=== PATIENT | female | born 1995 | race Two or more races ===

== ENCOUNTER 2018-04-15 09:10 | Emergency (ER) | payer SELFPAY ==
[~2018-04-15] VITALS: Ht 152.4 cm; Wt 62.0 kg
[2018-04-15 09:16] VITALS: BP 123/56; PULSE 88; RESP 16; TEMP 99.2; O2SAT 98
[2018-04-15] MEDS ORDERED: SODIUM CHLOR 0.9% 1000 ML INJ 1,000 ML IV ONE (09:35)
--- NOTE | 2018-04-15 09:43 | PD ---
HPI Chief Complaint: Abdominal Pain Time Seen by Provider: 09:33 Travel History International Travel<30 days: No Contact w/Intl Traveler<30days: No Traveled to known affect area: No History of Present Illness HPI 22-year-old female with reported 5 month , presents emergency department with lower abdominal discomfort and cramping. Patient has not had care prior to this visit. Patient is G2 para 1. She denies fever, chills, nausea, vomiting, dysuria, she denies vaginal bleeding or discharge. She denies back pain. She states lower abdominal cramping for the past 2 days. Pain is 6 out of 10. Patient has no known drug allergies. PFSH Past Medical History ?: Social History Alcohol Use: No Tobacco Use: No Substance Use: No Allergies-Medications (Allergen,Severity, Reaction): Coded Allergies: No Known Allergies (Unverified , 04/15/18) Reported Meds & Prescriptions Reported Meds & Active Scripts Active No Active Prescriptions or Reported Medications Review of Systems Except as stated in HPI: all other systems reviewed are Neg General / Constitutional: No: Fever Eyes: No: Visual changes HENT: No: Headaches Cardiovascular: No: Chest Pain or Discomfort Respiratory: No: Shortness of Breath Gastrointestinal: No: Abdominal Pain Genitourinary: Positive: Pelvic Pain, No: Urgency, Frequency, Dysuria, Flank Pain, Discharge, Vaginal Bleeding Musculoskeletal: No: Pain Skin: No Rash Neurologic: No: Weakness Psychiatric: No: Depression Endocrine: No: Polydipsia Hematologic/Lymphatic: No: Easy Bruising Physical Exam Narrative GENERAL: Patient appears in no obvious distress per SKIN: Warm and dry. Normal color. Normal turgor. HEAD: Atraumatic. Normocephalic. EYES: Pupils equal and round. No scleral icterus. No injection or drainage. ENT: No nasal bleeding or discharge. Mucous membranes pink and moist. Pharynx is clear. Airways patent. NECK: Trachea midline. Supple nontender. CARDIOVASCULAR: Regular rate and rhythm. RESPIRATORY: No accessory muscle use. Clear to auscultation. Breath sounds equal bilaterally. GASTROINTESTINAL: Abdomen soft, non-tender, gravid uterus consistent with history. Hepatic and splenic margins not palpable. No CVA tenderness. MUSCULOSKELETAL: Extremities without clubbing, cyanosis, or edema. No obvious deformities. NEUROLOGICAL: Awake and alert. No obvious cranial nerve deficits. Motor grossly within normal limits. Five out of 5 muscle strength in the arms and legs. Normal speech. PSYCHIATRIC: Appropriate mood and affect; insight and judgment normal. Data Data Last Documented VS Vital Signs Date Time Temp Pulse Resp B/P (MAP) Pulse Ox O2 Delivery O2 Flow Rate FiO2 04/15/18 09:16 99.2 88 16 123/56 (78) 98 Orders Orders Beta Hcg (Quant/Titer) (04/15/18 09:35) Complete Blood Count With Diff (04/15/18 09:35) Comprehensive Metabolic Panel (04/15/18 09:35) Urinalysis - C+S If Indicated (04/15/18 09:35) Iv Access Insert/Monitor (04/15/18 09:35) Ecg Monitoring (04/15/18 09:35) Heart Tones (04/15/18 09:35) Sodium Chloride 0.9% Flush (Ns Flush) (04/15/18 09:45) Sodium Chlor 0.9% 1000 Ml Inj (Ns 1000 M (04/15/18 09:35) Ed Poc Ultrasound (04/15/18 ) MDM Medical Decision Making Medical Screen Exam Complete: Yes Emergency Medical Condition: Yes Differential Diagnosis . Abdominal pain. Abdominal cramping. Narrative Course Patient appears medically stable at time of exam. Labs ordered including CBC, CMP, urinalysis, and beta hCG. IV access is obtained and patient is given 1000 mL's normal saline bolus. heart tones are obtained per Bedside ultrasound performed by Dr. Key. Ultrasound shows viable fetus approximately 20 weeks based on measurements. heart rate is 144. Calls placed to the funeral location manager hospitalist, who agrees the patient can be transferred to the OB floor for further evaluation. Diagnosis Primary Impression: Qualified Codes: Z3A.20 - 20 weeks gestation of Additional Impression: Abdominal pain Qualified Codes: R10.30 - Lower abdominal pain, unspecified Patient Instructions: General Instructions Scripts No Active Prescriptions or Reported Meds Disposition: 70 TRANSFER TO OTHER FACILITY Condition: Stable Chandler Mejia April 15, 2018 09:43
[2018-04-15] MEDS ORDERED: SODIUM CHLORIDE 0.9% FLUSH 10 ML FLUSH IVF PRN (09:45)
--- NOTE | 2018-04-15 10:10 | PD ---
Data Data Last Documented VS Vital Signs Date Time Temp Pulse Resp B/P (MAP) Pulse Ox O2 Delivery O2 Flow Rate FiO2 04/15/18 09:16 99.2 88 16 123/56 (78) 98 Orders Orders Beta Hcg (Quant/Titer) (04/15/18 09:35) Complete Blood Count With Diff (04/15/18 09:35) Comprehensive Metabolic Panel (04/15/18 09:35) Urinalysis - C+S If Indicated (04/15/18 09:35) Iv Access Insert/Monitor (04/15/18 09:35) Ecg Monitoring (04/15/18 09:35) Heart Tones (04/15/18 09:35) Sodium Chloride 0.9% Flush (Ns Flush) (04/15/18 09:45) Sodium Chlor 0.9% 1000 Ml Inj (Ns 1000 M (04/15/18 09:35) Ed Poc Ultrasound (04/15/18 ) MDM Supervised Visit with ARA: Yes Narrative Course The history, exam, and medical decision-making in the associated mid-level provider note were completed with my assistance. I reviewed and agree with the findings presented. I attest that I had a [id number] encounter with the patient on the same day, and personally performed and documented my assessment and findings in the medical record. *My assessment and Findings: 22-year-old woman, Nauruan-speaking, 2 para 1 here with lower abdominal cramping in the setting of . Believe she is about 5 months . No care. No previous ultrasound. No vaginal bleeding. No discharge. No other complaints. Symptoms ongoing for 2 days. Looks well on exam. Benign abdominal exam. Sfpas-ee-[id number] ultrasound shows pregnancies about 20+ weeks based on rough estimate of biparietal diameter. I spoke to the OB hospitalist. Will send labs, UA, will send L&D for evaluation given gestational age and OB related complaint. Procedures Procedure Narrative Qdqzi-eu-hius ultrasound: Focused transabdominal ultrasound performed by me at the bedside to evaluate for gestational age and well-being. Beck intrauterine is identified at about 21 weeks gestational age, heart rate in the 150s. Diagnosis Primary Impression: Qualified Codes: Z3A.20 - 20 weeks gestation of Additional Impression: Abdominal pain Qualified Codes: R10.30 - Lower abdominal pain, unspecified Patient Instructions: General Instructions Scripts No Active Prescriptions or Reported Meds Disposition: 70 TRANSFER TO OTHER FACILITY Condition: Arsenio Miller MD April 15, 2018 10:10
[2018-04-15 10:17] LABS: AUTOMATED NEUTROPHIL # 8.5 TH/MM3 (1.8-7.7); BASOPHIL # 0.1 TH/MM3 (0-0.2); BASOPHIL % 0.5 % (0.0-2.0); EOSINOPHIL # 1.6 TH/MM3 (0-0.4); EOSINOPHIL % 11.5 % (0.0-4.0); HEMATOCRIT 36.3 % (35.0-46.0); HEMOGLOBIN 11.9 GM/DL (11.6-15.3); LYMPH % 22.7 % (9.0-44.0); LYMPHOCYTE # 3.2 TH/MM3 (1.0-4.8); MEAN CELL VOLUME 84.6 FL (80.0-100.0); MEAN CORPUSCULAR HEMOGLOBIN 27.8 PG (27.0-34.0); MEAN CORPUSCULAR HGB CONC 32.8 % (32.0-36.0); MEAN PLATELET VOLUME 9.7 FL (7.0-11.0); MONO % 5.1 % (0.0-8.0); MONOCYTE # 0.7 TH/MM3 (0-0.9); NEUT % 60.2 % (16.0-70.0); PLATELET COUNT 219 TH/MM3 (150-450); RED BLOOD COUNT 4.29 MIL/MM3 (4.00-5.30); RED CELL DISTRIBUTION WIDTH 15.2 % (11.6-17.2); WHITE BLOOD COUNT 14.1 TH/MM3 (4.0-11.0)
[2018-04-15 10:23] LABS: BACTERIA, URINE OCC /hpf; BILIRUBIN, URINE NEG (NEG); BLOOD, URINE NEG (NEG); GLUCOSE,URINE NEG (NEG); KETONE, URINE NEG (NEG); MUCUS URINE FEW /lpf (OCC); NITRITE,URINE NEG (NEG); SQUAMOUS EPITHELIAL CELL URINE 7 /hpf (0-5); URINE COLOR LIGHT-YELLOW (YELLW/STRAW); URINE LEUKOCYTE ESTERASE LARGE (NEG)
[2018-04-15 10:36] LABS: ALT (GPT) 24 U/L (10-53)
[2018-04-15 10:38] LABS: AST (GOT) 16 U/L (15-37); BICARBONATE 21.6 MEQ/L (21.0-32.0); BLOOD UREA NITROGEN 5 MG/DL (7-18); CALCIUM 8.2 MG/DL (8.5-10.1); CHLORIDE 106 MEQ/L (98-107); CREATININE 0.45 MG/DL (0.50-1.00); GLOMERULAR FILTRATION RATE 176 ML/MIN (>89); GLUCOSE,RANDOM 81 MG/DL (74-106); SODIUM (NA) 139 MEQ/L (136-145)
[2018-04-15 10:54] LABS: ALKALINE PHOSPHATASE 61 U/L (45-117); TOTAL BILIRUBIN ADULT 0.1 MG/DL (0.2-1.0); TOTAL PROTEIN 6.9 GM/DL (6.4-8.2)
--- NOTE | 2018-04-15 11:49 | PD ---
HPI Chief Complaint Lower abdominal cramping since last night Date Seen: April 15, 2018 Time Seen: 11:30 Travel History International Travel<30 Days: No Contact w/Intl Traveler<30Days: No Known Affected Area: No History of Present Illness HPI Patient is a 22-year-old presenting to OB triage with complaints of lower abdominal cramping since last night. Patient states that currently she does not have abdominal cramping. Patient denies any loss of fluid or vaginal bleeding. Patient endorses movement. Denies chest pain, shortness of breath, fever, chills, lower extremity swelling , headaches or vision issues. Patient reports was nauseous yesterday and vomited once. Patient's reported LMP is October 24, 2017. This places her at 22/1 weeks gestational age. Of note patient moved from [place] 1 month ago. She says she found out she was 2 months ago and has not received any care. Para: 1 : 2 History Past Medical History Narrative Medical Asthma, does not take any medication Obstetric History Obstetric History 1, 3 years ago no complications Denies prior miscarriages or abortions Past Surgical History Surgical History: No Previous Surgery Family History Family History: Negative Social History Narrative Social History Patient reports she moved from [facility], [place] a month ago was currently living with [id number] and [id number]. She reports baby's father is in [place] she is not sure when he will be coming to the [facility]. She feels safe at home. Alcohol Use: No Tobacco Use: No Substance Abuse: No Allergies-Medications (Allergen,Severity, Reaction): Coded Allergies: No Known Allergies (Unverified , 04/15/18) Home Meds Active Scripts Albuterol Sulfate (Proair Hfa) 90 Mcg Hfa.aer.ad, 90 MCG PO Q6HR for Shortness of Breath, #1 5 Refills Prov:Alexandre Hunter MD, R1 04/15/18 Review of Systems Except as stated in HPI: all other systems reviewed are Neg Physical Exam Vital Signs Date Time Temp Pulse Resp B/P (MAP) Pulse Ox O2 Delivery O2 Flow Rate FiO2 04/15/18 09:16 99.2 88 16 123/56 (05) 98 Narrative GENERAL: Well-nourished, well-developed patient. SKIN: Warm and dry. HEAD: Normocephalic and atraumatic. EYES: No scleral icterus. No injection or drainage. ENT: No nasal drainage noted. Mucous membranes pink. Airway patent. NECK: Supple, trachea midline. No JVD. CARDIOVASCULAR: Regular rate and rhythm without murmurs, gallops, or rubs. RESPIRATORY: Inspiratory wheezing noted on deep inspiration through the lung ko bilaterally. No accessory muscle use. BREASTS: Bilateral exam showed no masses , no retractions, no nipple discharge. ABDOMEN/GI: Abdomen soft, non-tender, bowel sounds present, no rebound, no guarding Fundal Height: less than 20cm GENITOURINARY: Membranes: intact Uterine Contractions: none FHT's: 150 EXTREMITIES: No cyanosis or edema. BACK: Nontender without obvious deformity. No CVA tenderness. NEUROLOGICAL: Awake and alert. Motor and sensory grossly within normal limits. Five out of 5 muscle strength in all muscle groups. Normal speech. Data Data Vital Signs Reviewed: Yes Orders Orders Beta Hcg (Quant/Titer) (04/15/18 09:35) Complete Blood Count With Diff (04/15/18 09:35) Comprehensive Metabolic Panel (04/15/18 09:35) Urinalysis - C+S If Indicated (04/15/18 09:35) Iv Access Insert/Monitor (04/15/18 09:35) Ecg Monitoring (04/15/18 09:35) Heart Tones (04/15/18 09:35) Sodium Chloride 0.9% Flush (Ns Flush) (04/15/18 09:45) Sodium Chlor 0.9% 1000 Ml Inj (Ns 1000 M (04/15/18 09:35) Ed Poc Ultrasound (04/15/18 ) Vital Signs (Adult) .ON ADMISSION (04/15/18 11:41) ^ Labor Status (04/15/18 11:41) ^ Non Stress Test (04/15/18 11:41) Ob Poc Ultrasound (04/15/18 ) Labs Laboratory Tests Test 04/15/18 10:00 White Blood Count 14.1 Red Blood Count 4.29 Hemoglobin 11.9 Hematocrit 36.3 Mean Corpuscular Volume 84.6 Mean Corpuscular Hemoglobin 27.8 Mean Corpuscular Hemoglobin Concent 32.8 Red Cell Distribution Width 15.2 Platelet Count 219 Mean Platelet Volume 9.7 Neutrophils (%) (Auto) 60.2 Lymphocytes (%) (Auto) 22.7 Monocytes (%) (Auto) 5.1 Eosinophils (%) (Auto) 11.5 Basophils (%) (Auto) 0.5 Neutrophils # (Auto) 8.5 Lymphocytes # (Auto) 3.2 Monocytes # (Auto) 0.7 Eosinophils # (Auto) 1.6 Basophils # (Auto) 0.1 CBC Comment DIFF FINAL Differential Comment Urine Color LIGHT-YELLOW Urine Turbidity CLEAR Urine pH 7.0 Urine Specific [place] 1.007 Urine Protein NEG Urine Glucose (UA) NEG Urine Ketones NEG Urine Occult Blood NEG Urine Nitrite NEG Urine Bilirubin NEG Urine Urobilinogen LESS THAN 2.0 Urine Leukocyte Esterase LARGE Urine RBC LESS THAN 1 Urine WBC 3 Urine Squamous Epithelial Cells 7 Urine Bacteria OCC Urine Mucus FEW Microscopic Urinalysis Comment CULT NOT INDICATED Blood Urea Nitrogen 5 Creatinine 0.45 Random Glucose 81 Total Protein 6.9 Albumin 3.0 Calcium Level 8.2 Alkaline Phosphatase 61 Aspartate Amino Transf (AST/SGOT) 16 Alanine Aminotransferase (ALT/SGPT) 24 Total Bilirubin 0.1 Sodium Level 139 Potassium Level 3.8 Chloride Level 106 Carbon Dioxide Level 21.6 Anion Gap 11 Estimat Glomerular Filtration Rate 176 Human Chorionic Gonadotropin, Quant 96936 MDM Medical Record Reviewed: Yes Plan Patient is a 22-year-old presenting to OB triage with complaints of lower abdominal cramping since last night. No current complaints. IUP at 22 weeks gestation based on OB u/s dating 1. no contraction on toco monitor 2. FTH 150, fundal height of 23 3. OB u/s dating at 22 wk gestation. Normal u/s. 4. f/u labs results 5. Patient with inspiratory wheezing on lung exam. Albuterol neb treatment ordered to be given prior to discharge. 6. albuterol inhaler inh prescription given 7. Patient was given information to establish [facility] with de. SDW Dr. Bettencourt Diagnosis Diagnosis: Primary Impression: Qualified Codes: Z3A.20 - 20 weeks gestation of Additional Impressions: Abdominal pain Qualified Codes: R10.30 - Lower abdominal pain, unspecified 22 weeks gestation of Disposition: DISCHARGE HOME Condition: Stable Scripts Albuterol Sulfate (Proair Hfa) 90 Mcg Hfa.aer.ad 90 MCG PO Q6HR for Shortness of Breath, #1 5 Refills Prov: Alexandre Hunter MD, R1 04/15/18 Patient Instructions: General Instructions Alexandre Hunter MD, R1 April 15, 2018 11:49
[2018-04-15] MEDS ORDERED: RESP: ALBUTEROL 1.25 MG/3 ML NEB (SCH) NEB ONE (12:15)
[2018-04-15] MEDS ORDERED: ALBUAER3 PO (13:14)
[2018-04-15] MEDS ORDERED: RESP: ALBUTEROL 2.5 MG/3 ML NEB (PRN) ONE (13:23)
[2018-04-15] MEDS ORDERED: RESP: ALBUTEROL 2.5 MG/3 ML NEB (SCH) NEB ONE (13:30)
== END 2018-04-15 13:48 | disposition home or self-care (01) ==
LOC: HOBED 09:10
DX: O26.892 Other specified pregnancy related conditions, second trimester (principal); R10.30 Lower abdominal pain, unspecified; J45.909 Unspecified asthma, uncomplicated; Z3A.22 22 weeks gestation of pregnancy; Z34.92 Encounter for supervision of normal pregnancy, unspecified, second trimester
CPT/HCPCS: 36415; 76805; 80053; 80074; 80307; 81001; 84702; 85025; 86592; 86762; 86850; 86900; 86901; 87389; 87491; 87591; 94664; 99284; G0481; J7030; J7613; G0475

== ENCOUNTER 2018-08-09 00:39 | Inpatient (IN) ==
--- NOTE | 2018-08-09 01:09 | ED ---
History of Present Illness Primary Care Physician: NOT REQUIRED Dr. Hunter, PCP providing OB care History of Present Illness: at 38 weeks and 3 days presents with worsening contractions of the day today and leakage of bloody fluid. She states it has been a small amount of fluid and bloody. Her contractions have gone from a 5 out of 10 pain to 6 out of 10 pain. She continues to feel the baby move. Obhx: This - uncomplicated, late to care with first visit at 29 weeks x 1 Med hx: Asthmauses albuterol inhaler sparingly Social history: Ugandan-speaking only, with that is Ugandan-speaking only No history of smoking or drug use Review of Systems All other systems reviewed negative except as stated in HPI PMFSH - History History Provided By: Patient, Family Member, Friend - Medical History Medical History: Medical History (Last Updated 08/08/18 @ 19:39 by Cyndee Foely MD, R2) Asthma - Tobacco History Second Hand Smoke Exposure: No Medications and Allergies Allergies Allergy/AdvReac Type Severity Reaction Status Date / Time No Known Allergies Allergy Verified 08/08/18 19:38 Home Medications Medication Instructions Recorded Confirmed Type albuterol sulfate 2.5 mg INHALATION Q4H PRN 08/08/18 08/09/18 History Exam Vital signs: Vital Signs 08/09/18 00:59 08/09/18 01:00 Temperature 98.3 F Pulse Rate 71 Respiratory Rate 18 Blood Pressure 125/80 Assessment and Plan - Plan at 38 weeks 3 days gestation, presents in labor. Contractions every 2-3 minutes, 4 cm with bloody discharge, amniosure negative Tracing category 1 Continue monitoring Patient not requesting epidural at this time Dr. Marrufo aware. Discharge Plan - Discharge Disposition Patient Disposition: 30 Still Patient - Physicians Team ED Provider: Pool Marrufo Primary Care Provider: Primary Care Radha Velazquez
[2018-08-09] MEDS ORDERED: Oxytocin 30 Units/500ml Premix 30 UNITS/500 ML BAG IV.SIG ONE (01:11)
[2018-08-09] MEDS ORDERED: Sod Chloride 0.9% Inj 1,000 ML IV.CONT PRN (01:11)
[2018-08-09] MEDS ORDERED: Sodium Chlor 0.9% Inj 500 ML IV.SIG PRN (01:11)
[2018-08-09] MEDS ORDERED: Naloxone Inj 0.4 MG/ML Vial IV.PUSH PRN ×2 (01:11→04:06)
[2018-08-09] MEDS ORDERED: fentaNYL Citrate Inj 100 MCG/2 ML Ampul IV.PUSH PRN ×2 (01:11)
[2018-08-09] MEDS ORDERED: Citric Acid/Sodium Citrate Liq 30 ML UDC PO SCH (01:15)
--- NOTE | 2018-08-09 01:33 | P.HPOB ---
History of Present Illness Primary Care Physician: No Primary Care Physician History of Present Illness: at 38 weeks and 3 days presents with worsening contractions of the day today and leakage of bloody fluid. She states it has been a small amount of fluid and bloody. Her contractions have gone from a 5 out of 10 pain to 6 out of 10 pain. She continues to feel the baby move. Obhx: This - uncomplicated, late to care with first visit at 29 weeks x 1 Med hx: Asthmauses albuterol inhaler sparingly Social history: Kazakh-speaking only, with that is Kazakh-speaking only No history of smoking or drug use - Inpatient Certification I certify that the inpatient services were ordered in accordance with Medicare regulations governing the order. This includes certification that hospital inpatient services are reasonable and necessary and in the case of services not specified as inpatient-only under 42 CFR 419.22(n), that they are appropriately provided as inpatient services in accordance to with the 2-midnight benchmark under 43 CFR 412.3(e) Estimated Total Length of Stay (Days): 2 Plans for Post Hospital Care: Home Review of Systems All other systems reviewed negative except as stated in HPI PMFSH - History History Provided By: Patient, Family Member, Friend - Medical History Medical History: Medical History (Last Reviewed 08/09/18 @ 01:30 by Cyndee Foley MD, R2) Asthma - Tobacco History Second Hand Smoke Exposure: No Smoking Status: Never smoker - Alcohol History How Often Do You Have a Drink Containing Alcohol: Never - Substance Use History Substance History: No History of Abuse - Travel History History of Recent Travel: No Recent Travel in the [place] Within the Last 8 Weeks: No Recent Travel Out of the Country Within the Last 8 Weeks: No Medications and Allergies Active Medications: Active Medications Citric Acid/Sodium Citrate (Sodium Citrate/Citric Acid Liq) 30 ml PO [employer] [facility] Stop: 08/13/18 01:14 Fentanyl Citrate (Fentanyl Inj) 50 mcg IV.PUSH Q1H PRN PRN Reason: Pain Scale 3 - 5 Fentanyl Citrate (Fentanyl Inj) 100 mcg IV.PUSH Q1H PRN PRN Reason: PAIN SCALE 6 TO 10 Lactated Ringer's (Lr 1000 Ml Inj) 1,000 mls @ 125 mls/hr IV.CONT .Q8H [facility] Lactated Ringer's (Lr 1000 Ml Inj) 1,000 mls @ 3,000 mls/hr IV.SIG UNSCH PRN PRN Reason: compromise or epidural Sodium Chloride (Ns Inj) 500 mls @ 1,000 mls/hr IV.SIG UNSCH PRN PRN Reason: SEE LABEL COMMENTS Sodium Chloride (Ns Inj) 1,000 mls @ 100 mls/hr IV.CONT .Q10H PRN PRN Reason: SEE LABEL COMMENTS Oxytocin (Pitocin 30 Units/Ns 500 Ml Premix) 30 units in 500 mls @ 999 mls/hr IV.SIG BOLUS ONE Stop: 08/09/18 01:41 Lidocaine HCl (Xylocaine 1% Inj) 0.1 ml I-DERMAL PRN PRN PRN Reason: For IV start Stop: 08/12/18 01:10 Lidocaine HCl (Xylocaine 1% Inj) 10 ml INFILTRATN PRN PRN PRN Reason: For episiotomy repair Stop: 08/11/18 01:10 Mineral Oil (Muri-Lube Oil) 10 ml TOPICAL PRN PRN PRN Reason: PRN perineal massage Naloxone HCl (Narcan Inj) 0.1 mg IV.PUSH Q2M PRN PRN Reason: for opiate reversal Allergies Allergy/AdvReac Type Severity Reaction Status Date / Time No Known Allergies Allergy Verified 08/08/18 19:38 Home Medications Medication Instructions Recorded Confirmed Type albuterol sulfate 2.5 mg INHALATION Q4H PRN 08/08/18 08/09/18 History Exam Vital signs: Vital Signs 08/09/18 00:59 08/09/18 01:00 08/09/18 01:10 Temperature 98.3 F Pulse Rate 71 73 Respiratory Rate 18 Blood Pressure 125/80 Intake & Output 08/08/18 08/08/18 08/09/18 06:59 18:59 06:59 Weight 67.132 kg Narrative: GENERAL: Well-nourished, well-developed patient. SKIN: Warm and dry. HEAD: Normocephalic and atraumatic. EYES: No scleral icterus. No injection or drainage. ENT: No nasal drainage noted. Mucous membranes pink. Airway patent. NECK: Supple, trachea midline. No JVD. CARDIOVASCULAR: Regular rate and rhythm without murmurs, gallops, or rubs. RESPIRATORY: Breath sounds equal bilaterally. No accessory muscle use. ABDOMEN/GI: Abdomen soft, non-tender, bowel sounds present, no rebound, no guarding Gravid to [38] weeks size Fundal Height: [38] GENITOURINARY: External Genitalia: intact and normal in appearance FHT's: Category 1, good variability, positive accelerations -No decelerations Ashley every 2-3 minutes Caprini VTE Risk Assessment Caprini VTE Risk Assessment: No/Low Risk (score <= 1) Caprini Risk Assessment Model: Point Value = 1 Point Value = 2 Point Value = 3 Point Value = 5 Age 41-60 Minor surgery BMI > 25 kg/m2 Swollen legs Varicose veins or History of unexplained or recurrent spontaneous Oral contraceptives or hormone replacement Sepsis (< 1 month) Serious lung disease, including pneumonia (< 1 month) Abnormal pulmonary function Acute myocardial infarction Congestive heart failure (< 1 month) History of inflammatory bowel disease Medical patient at bed rest Age 61-74 Arthroscopic surgery Major open surgery (> 45 min) Laparoscopic surgery (> 45 min) Malignancy Confined to bed (> 72 hours) Immobilizing plaster cast Central venous access Age >= 75 History of VTE Family history of VTE Factor V Leiden Prothrombin [id number] Lupus anticoagulant Anticardiolipin antibodies Elevated serum homocysteine Heparin-induced thrombocytopenia Other congenital or acquired thrombophilia Stroke (< 1 month) Elective arthroplasty Hip, pelvis, or leg fracture Acute spinal cord injury (< 1 month) Prophylaxis Regimen: Total Risk Factor Score Risk Level Prophylaxis Regimen 0-1 Low Early ambulation 2 Moderate Order ONE of the following: *Sequential Compression Device (SCD) *Heparin 5000 units SQ BID 3-4 Higher Order ONE of the following medications: *Heparin 5000 units SQ TID *Enoxaparin/Lovenox 40 mg SQ daily (WT < 150 kg, CrCl > 30 mL/min) *Enoxaparin/Lovenox 30 mg SQ daily (WT < 150 kg, CrCl > 10-29 mL/min) *Enoxaparin/Lovenox 30 mg SQ BID (WT < 150 kg, CrCl > 30 mL/min) AND/OR *Sequential Compression Device (SCD) 5 or more Highest Order ONE of the following medications: *Heparin 5000 units SQ TID (Preferred with Epidurals) *Enoxaparin/Lovenox 40 mg SQ daily (WT < 150 kg, CrCl > 30 mL/min) *Enoxaparin/Lovenox 30 mg SQ daily (WT < 150 kg, CrCl > 10-29 mL/min) *Enoxaparin/Lovenox 30 mg SQ BID (WT < 150 kg, CrCl > 30 mL/min) AND *Sequential Compression Device (SCD) Assessment and Plan - Plan at 38 weeks 3 days gestation, presents in labor. Contractions every 2-3 minutes, 4 cm with bloody discharge, amniosure negative Tracing category 1 Continue monitoring Patient not requesting epidural at this time Dr. Marrufo aware.
[2018-08-09 02:06] LABS: Baso # (Auto) 0.1 th/mm3 (0.0-0.2); Baso % (Auto) 0.6 % (0.0-2.0); Eos % (Auto) 8.4 % (0.0-4.0); Hematocrit 37.9 % (35.0-46.0); Hemoglobin 12.6 gm/dL (11.6-15.3); Lymph # (Auto) 3.3 th/mm3 (1.0-4.8); Lymph % (Auto) 28.8 % (9.0-44.0); Mean Corpuscular HGB Conc 33.3 % (32.0-36.0); Mean Corpuscular Hemoglobin 27.9 pg (27.0-34.0); Mean Corpuscular Volume 83.8 fL (80.0-100.0); Mean Platelet Volume 10.7 fL (7.0-11.0); Mono # (Auto) 0.7 th/mm3 (0.0-0.9); Mono % (Auto) 6.1 % (0.0-8.0); Neut # (Auto) 6.3 th/mm3 (1.8-7.7); Neut % (Auto) 56.1 % (16.0-70.0); Platelet Count 191 th/mm3 (150-450); Red Blood Count 4.52 mil/mm3 (4.00-5.30); Red Cell Distribution Width 13.5 % (11.6-17.2); White Blood Count 11.3 th/mm3 (4.0-11.0)
[2018-08-09] MEDS ORDERED: fentaNYL 2MCG-Bupiv 0.125% Epi 150 ML EPIDURAL ONE (02:16)
[2018-08-09 02:21] LABS: Amorphous Sediment,Urine Moderate /hpf; Bacteria,Urine Few /hpf; Bilirubin,Urine Negative (Negative); Clarity,Urine Turbid (Clear); Color,Urine Red (Yellw/Straw); Glucose,Urine (UA) Negative (Negative); Leukocyte Esterase,Urine Moderate (Negative); Mucus,Urine Few /lpf (Occasional); Nitrite,Urine Negative (Negative); Specific Gravity,Urine 1.005 (1.002-1.035); Squamous Epithelial Cell,Urine 71 /hpf (0-5); Transitional Epi Cells,Urine 1 /hpf
[2018-08-09 02:23] LABS: Amphetamine Urine With Conf Neg (Neg); Benzodiazepine Urine With Conf Neg (Neg)
[2018-08-09] MEDS ORDERED: Acetaminophen 325 MG Tablet PO PRN (04:06)
[2018-08-09] MEDS ORDERED: Benzocaine 20% Top Spray 60 ML Can TOPICAL PRN (04:06)
[2018-08-09] MEDS ORDERED: Witch Hazel 50%/Glyderin 12.5% 40 Pad Jar RECTAL PRN (04:06)
[2018-08-09] MEDS ORDERED: Bisacodyl 10 MG Supp RECTAL PRN (04:06)
[2018-08-09] MEDS ORDERED: Oxytocin 30 Units/500ml Premix 30 UNITS/500 ML BAG IV.CONT PRN (04:06)
--- NOTE | 2018-08-09 04:35 | P.OBDELI ---
Weeks Gestation: 38 Patient Started Active Labor: Yes Active Labor Start Date: 08/09/18 Medical Induction of Labor: No Artificial Rupture of Membrane: No Anesthesia: None Episiotomy: none Vaginal Delivery: Normal Presentation: Occiput anterior Nuchal Cord: None Delayed Cord Clamping (45 sec): Yes Laceration: 1 deg Estimated blood loss (mL): 200 : Female Additional Information: Female (delivery time: 03:58). : 8/9. weight 2950 g
[2018-08-09] MEDS: Senna/Docusate Sodium 8.6/50 MG Tablet PO SCH ×2 (10:11→22:51)
[2018-08-09] MEDS ORDERED: Diphtheria/Tetanus/Pertussis Vaccine Inj 0.5 ML Syringe IM ONE (16:00)
[2018-08-09] MEDS ORDERED: Measles/Mumps/Rubella Vaccine Inj 0.5 ML Vial SQ ONE (16:00)
--- NOTE | 2018-08-10 08:43 | P.PNOB ---
Subjective Post day: 1 Interval history: Patient seen and examined this morning. AFVSS overnight. day #1. Pain is minimal and well controlled. Decreased lochia. Denies dysuria. No breast tenderness. She is feeding the baby via breast. Appetite good. No nausea or vomiting. Patient is passing flatus and had one bowel movement yesterday. Ambulating well. Denies calf pain, shortness of breath, or cough. She otherwise has no other complaints or concerns this morning. Objective Vital Signs/I&O: Vital Signs 08/09/18 14:45 08/09/18 20:00 Temperature 98.4 F 98.2 F Pulse Rate 75 70 Respiratory Rate 16 18 Blood Pressure 118/64 127/73 Result Diagrams: 08/09/18 01:35 Objective Remarks: GENERAL: Well-nourished, well-developed patient. CARDIOVASCULAR: Regular rate and rhythm without murmurs, gallops, or rubs. RESPIRATORY: Breath sounds equal bilaterally. No accessory muscle use. ABDOMEN/GI: Abdomen soft, non-tender. Fundus: Firm, non-tender at umbilicus. GENITOURINARY: Light bleeding. EXTREMITIES: No cyanosis or edema, non-tender, without signs of DVT. Medications and IVs: Active Medications Acetaminophen (Tylenol) 650 mg PO Q4H PRN PRN Reason: PAIN SCALE 1 TO 2 Al Hydroxide/Mg Hydroxide (Milk Of Magnesia Liq) 30 ml PO Q12H PRN PRN Reason: Mild Constipation Benzocaine (Americaine 20% Top [place]) 1 spray TOPICAL Q4H PRN PRN Reason: For Perineum Discomfort Bisacodyl (Dulcolax Supp) 10 mg RECTAL DAILY PRN PRN Reason: SEVERE CONSITIPATION Citric Acid/Sodium Citrate (Sodium Citrate/Citric Acid Liq) 30 ml PO [employer]CHNICIAN [facility] Stop: 08/13/18 01:14 Fentanyl Citrate (Fentanyl Inj) 50 mcg IV.PUSH Q1H PRN PRN Reason: Pain Scale 3 - 5 Fentanyl Citrate (Fentanyl Inj) 100 mcg IV.PUSH Q1H PRN PRN Reason: PAIN SCALE 6 TO 10 Lactated Ringer's (Lr 1000 Ml Inj) 1,000 mls @ 125 mls/hr IV.CONT .Q8H [facility] Last Admin: 08/09/18 06:03 Dose: 125 mls/hr Lactated Ringer's (Lr 1000 Ml Inj) 1,000 mls @ 3,000 mls/hr IV.SIG UNSCH PRN PRN Reason: compromise or epidural Sodium Chloride (Ns Inj) 500 mls @ 1,000 mls/hr IV.SIG UNSCH PRN PRN Reason: SEE LABEL COMMENTS Sodium Chloride (Ns Inj) 1,000 mls @ 100 mls/hr IV.CONT .Q10H PRN PRN Reason: SEE LABEL COMMENTS Oxytocin (Pitocin 30 Units/Ns 500 Ml Premix) 30 units in 500 mls @ 100 mls/hr IV.CONT UNSCH PRN PRN Reason: Heavy bleeding Ibuprofen (Motrin) 800 mg PO Q8H PRN PRN Reason: For Cramping Last Admin: 08/09/18 22:51 Dose: 800 mg Lactulose (Lactulose Liq) 30 ml PO DAILY PRN PRN Reason: SEVERE CONSITIPATION Lidocaine HCl (Xylocaine 1% Inj) 0.1 ml I-DERMAL PRN PRN PRN Reason: For IV start Stop: 08/12/18 01:10 Lidocaine HCl (Xylocaine 1% Inj) 10 ml INFILTRATN PRN PRN PRN Reason: For episiotomy repair Stop: 08/11/18 01:10 Mineral Oil (Muri-Lube Oil) 10 ml TOPICAL PRN PRN PRN Reason: PRN perineal massage Naloxone HCl (Narcan Inj) 0.1 mg IV.PUSH Q2M PRN PRN Reason: for opiate reversal Naloxone HCl (Narcan Inj) 0.1 mg IV.PUSH Q2M PRN PRN Reason: for opiate reversal Ondansetron HCl (Zofran Odt) 4 mg PO Q6H PRN PRN Reason: NAUSEA OR VOMITING Senna/Docusate Sodium (Lyric-Colace) 1 tab PO BID [facility] Last Admin: 08/09/18 22:51 Dose: 1 tab Sennosides (Senokot) 17.2 mg PO Q12H PRN PRN Reason: Moderate Constipation Sodium Chloride (Ns Flush) 2 ml IV.FLUSH BID [facility] Last Admin: 08/09/18 22:52 Dose: 2 ml Sodium Chloride (Ns Flush) 2 ml IV.FLUSH PRN PRN PRN Reason: FLUSH AFTER USING IV ACCESS Last Admin: 08/09/18 10:11 Dose: 2 ml Witch Samira/Glycerin (Tucks Pads) 1 applicatio RECTAL QID PRN PRN Reason: HEMORRHOIDS Assessment and Plan - Plan 22 y/o female who is : 1. PPD# 1 s/p . -Continue routine care. -Percocet and Motrin PRN pain. -Encouraged OOB. Advised pelvic rest for 6 wks. -Re: ctrl, she would like to discuss her options with me her PCP at follow -up visit. -Anticipate discharge tomorrow. 2. Asthma -well controlled -albuterol inhaler prn dw Dr. Alejandro Jaramillo MD
[2018-08-10] MEDS: Senna/Docusate Sodium 8.6/50 MG Tablet PO SCH (21:40)
[2018-08-11 08:45] VITALS: BP 118/70; PULSE 59; RESP 16; TEMP 98
--- NOTE | 2018-08-11 09:04 | P.PNOB ---
Subjective Post op day: 2 Interval history: Patient seen and examined this morning. AFVSS overnight. day #2. Pain is minimal and well controlled. Decreased lochia. Denies dysuria. No breast tenderness. She is feeding the baby via breast and formula. Appetite good. No nausea or vomiting. Patient is passing flatus and had one bowel movement yesterday. Ambulating well. Denies calf pain, shortness of breath, or cough. She otherwise has no other complaints or concerns this morning. Objective Vital Signs/I&O: Vital Signs 08/10/18 09:00 08/10/18 20:00 08/11/18 08:00 Temperature 97.8 F 98.2 F 98.0 F Pulse Rate 84 72 59 L Respiratory Rate 20 18 16 Blood Pressure 114/71 116/63 118/70 Result Diagrams: 08/09/18 01:35 Objective Remarks: GENERAL: Well-nourished, well-developed patient. CARDIOVASCULAR: Regular rate and rhythm without murmurs, gallops, or rubs. RESPIRATORY: Breath sounds equal bilaterally. No accessory muscle use. Mild expiratory wheezing noted bilaterally. ABDOMEN/GI: Abdomen soft, non-tender, bowel sounds present. Fundus: Firm, non-tender at umbilicus. GENITOURINARY: Light bleeding. EXTREMITIES: No cyanosis or edema, non-tender, without signs of DVT. Medications and IVs: Active Medications Acetaminophen (Tylenol) 650 mg PO Q4H PRN PRN Reason: PAIN SCALE 1 TO 2 Al Hydroxide/Mg Hydroxide (Milk Of Magnesia Liq) 30 ml PO Q12H PRN PRN Reason: Mild Constipation Albuterol (Ventolin Hfa Inh) 2 puff INH Q6H PRN PRN Reason: SHORTNESS OF BREATH Benzocaine (Americaine 20% Top [place]) 1 spray TOPICAL Q4H PRN PRN Reason: For Perineum Discomfort Bisacodyl (Dulcolax Supp) 10 mg RECTAL DAILY PRN PRN Reason: SEVERE CONSITIPATION Citric Acid/Sodium Citrate (Sodium Citrate/Citric Acid Liq) 30 ml PO [employer] [facility] Stop: 08/13/18 01:14 Fentanyl Citrate (Fentanyl Inj) 50 mcg IV.PUSH Q1H PRN PRN Reason: Pain Scale 3 - 5 Fentanyl Citrate (Fentanyl Inj) 100 mcg IV.PUSH Q1H PRN PRN Reason: PAIN SCALE 6 TO 10 Lactated Ringer's (Lr 1000 Ml Inj) 1,000 mls @ 125 mls/hr IV.CONT .Q8H [facility] Last Admin: 08/09/18 06:03 Dose: 125 mls/hr Lactated Ringer's (Lr 1000 Ml Inj) 1,000 mls @ 3,000 mls/hr IV.SIG UNSCH PRN PRN Reason: compromise or epidural Sodium Chloride (Ns Inj) 500 mls @ 1,000 mls/hr IV.SIG UNSCH PRN PRN Reason: SEE LABEL COMMENTS Sodium Chloride (Ns Inj) 1,000 mls @ 100 mls/hr IV.CONT .Q10H PRN PRN Reason: SEE LABEL COMMENTS Oxytocin (Pitocin 30 Units/Ns 500 Ml Premix) 30 units in 500 mls @ 100 mls/hr IV.CONT UNSCH PRN PRN Reason: Heavy bleeding Ibuprofen (Motrin) 800 mg PO Q8H PRN PRN Reason: For Cramping Last Admin: 08/11/18 05:36 Dose: 800 mg Lactulose (Lactulose Liq) 30 ml PO DAILY PRN PRN Reason: SEVERE CONSITIPATION Lidocaine HCl (Xylocaine 1% Inj) 0.1 ml I-DERMAL PRN PRN PRN Reason: For IV start Stop: 08/12/18 01:10 Mineral Oil (Muri-Lube Oil) 10 ml TOPICAL PRN PRN PRN Reason: PRN perineal massage Naloxone HCl (Narcan Inj) 0.1 mg IV.PUSH Q2M PRN PRN Reason: for opiate reversal Naloxone HCl (Narcan Inj) 0.1 mg IV.PUSH Q2M PRN PRN Reason: for opiate reversal Ondansetron HCl (Zofran Odt) 4 mg PO Q6H PRN PRN Reason: NAUSEA OR VOMITING Senna/Docusate Sodium (Lyric-Colace) 1 tab PO BID [facility] Last Admin: 08/10/18 21:40 Dose: 1 tab Sennosides (Senokot) 17.2 mg PO Q12H PRN PRN Reason: Moderate Constipation Sodium Chloride (Ns Flush) 2 ml IV.FLUSH BID [facility] Last Admin: 08/09/18 22:52 Dose: 2 ml Sodium Chloride (Ns Flush) 2 ml IV.FLUSH PRN PRN PRN Reason: FLUSH AFTER USING IV ACCESS Last Admin: 08/09/18 10:11 Dose: 2 ml Witch Samira/Glycerin (Tucks Pads) 1 applicatio RECTAL QID PRN PRN Reason: HEMORRHOIDS Assessment and Plan - Plan 22 y/o female who is : 1. PPD# 2 s/p . -Continue routine care. -Motrin PRN pain. -Encouraged OOB. Advised pelvic rest for 6 wks. -Re: ctrl, she would like to discuss her options with me (her PCP) at follow-up visit. -Anticipate discharge today. 2. Asthma -stable -albuterol inhaler prn -resume home medication regimen dw Dr. May MD Discharge Planning: Anticipate discharge today
[2018-08-11] MEDS: Senna/Docusate Sodium 8.6/50 MG Tablet PO SCH (09:08)
== END 2018-08-11 10:30 | disposition home or self-care (01) ==
LOC: HOBED 00:39 → H2E 01:15 → H1EA 06:24
PROVIDERS: ADMIT Obstetrics & Gynecology Maternal & Fetal Medicine; ATTEND Obstetrics & Gynecology Maternal & Fetal Medicine